=== PATIENT | female | born 1960 | race Caucasian/White ===

== ENCOUNTER → 2017-06-24 | Outpatient (CLI) | payer BC ==
[~2017-06-24] MED LIST: IBU-8800 MG PO; KETOROLAC0.03 ML/DR OP; LORTAB 5/500 501 TAB PO; LOTREL1 CA1 PO; NAPROSYN500 M1 PO; NORCO 325 MG-51 TAB PO; OFLOXACIN 10 ML10 ML OP; PREVACID 30MG C30 M1 PO
[2017-06-24 16:23] LABS: HEMOGLOBIN 13.7 g/dL (12.2-16.2)
== END ==
LOC: LAB 16:06
PROVIDERS: Surgery
DX: R19.5 Other fecal abnormalities (principal); Z01.812 Encounter for preprocedural laboratory examination

== ENCOUNTER 2017-07-02 10:46 | Day surgery (SDC) | payer BC ==
--- NOTE | 2017-07-02 12:27 | Operative Note ---
Surgeon/Diagnoses Surgeon/Operations Support Representative(s) Date of procedure: 07/02/17 Surgeon: MD Gisela Ang Diagnoses Pre-op diagnosis: Hemoccult positive stool Post-op diagnosis Same as preoperative diagnoses, with the addition of the following: Colon polyp Tortuous colon Procedure Procedure Procedure: Colonoscopy with polypectomy by means other than snare (biopsy) Indications: DARLENE ARELLANO is a 56 year-old Female with a history of Hemoccult positive stool. No melena. No bright red blood per rectum. No unexplained weight loss. No epigastric pain or reflux. Findings: Bowel preparation moderate to poor Very tortuous colon 8 mm polyp at 30 cm Procedure Description: After informed consent was obtained, the patient was taken to the endoscopy suite. IV sedation ensued after she was transferred to the LEFT lateral decubitus position. Digital rectal exam revealed no significant abnormality. The colonoscope was placed in position. The entire colon was evaluated. Bowel preparation was moderate to poor with large volume irrigation and suctioning used to somewhat improved visualization. The patient also had a very tortuous colon making visualization in certain areas of the colon very difficult. An 8 mm polyp at 30 cm was excised with cold biopsy forceps. No additional lesions were seen. The colonoscope was carefully removed and the patient was transferred to recovery. EBL (ml): 1 Anesthesia: IV sedation with 11 mg of Versed and 200 g of fentanyl Complications: No immediate Specimens: 8mm polyp at 30 cm Disposition Disposition: Stable to recovery from where she will be discharged home. She will follow-up in one week. Barium enema in the near future is warranted secondary to significant tortuosity and limited bowel preparation. Repeat colonoscopy will be pending pathology and barium enema, but will likely be within 3 years. at [id number]
[2017-07-02 13:52] VITALS: BP 124/71
== END 2017-07-02 13:09 | disposition home or self-care (01) ==
LOC: SDC 10:46
PROVIDERS: Surgery
PROC: 0DBE8ZX Excision of Large Intestine, Via Natural or Artificial Opening Endoscopic, Diagnostic (ICD-10-PCS; principal; 2017-07-02 11:30)
DX: Z12.11 Encounter for screening for malignant neoplasm of colon (principal); R19.5 Other fecal abnormalities; K63.5 Polyp of colon

== ENCOUNTER → 2017-07-17 | Outpatient (CLI) | payer BC ==
[2017-07-17 16:58] LABS: HEMOGLOBIN 13.1 g/dL (12.2-16.2)
== END ==
LOC: LAB 16:18
PROVIDERS: Surgery
DX: R19.5 Other fecal abnormalities (principal); Z01.812 Encounter for preprocedural laboratory examination

== ENCOUNTER 2017-07-22 06:54 | Day surgery (SDC) | payer BC ==
--- NOTE | 2017-07-22 07:58 | Operative Note ---
Surgeon/Diagnoses Surgeon/Financial Market Dealer(s) Date of procedure: 07/22/17 Surgeon: MD Gisela Ang Diagnoses Pre-op diagnosis: Occult blood in stool Gastroesophageal reflux Post-op diagnosis Same as preoperative diagnoses, with the addition of the following: Gastritis Gastric polyps Procedure Procedure Procedure: Esophagogastroduodenoscopy with biopsies Indications: DARLENE ARELLANO is a 57 year-old Female with a history of Hemoccult positive stool and gastroesophageal reflux. Findings: Gastroesophageal junction at 41 cm Mild gastritis with patchy areas of moderate inflammation Multiple polyps (likely inflammatory/fundic gland) throughout mid gastric body Procedure Description: After informed consent was obtained, the patient was taken to the endoscopy suite. IV sedation ensued after she was transferred to the LEFT lateral decubitus position. The gastroscope was advanced. The gastroesophageal junction was at 41 cm. The stomach was entered. Multiple polyps were noted throughout the mid gastric body. These polyps appeared to be inflammatory/fundic gland polyps. Multiple biopsies were obtained. No active bleeding was seen. Baseline mild gastritis with focal areas of patchy moderate inflammatory response were noted. Antral biopsies were obtained. Retroflexion revealed no significant abnormality and no definitive/large herniation; however, visualization of the hiatus was somewhat limited secondary to lack of relaxation. The pylorus was intubated. The duodenal mucosa appeared relatively normal. The gastroscope was carefully removed and the patient was transferred to recovery. EBL (ml): 1 Anesthesia: IV sedation with 7 mg of Versed and 150 g of fentanyl Complications: No immediate Specimens: Antral biopsies Multiple biopsies of mid gastric body polyps Disposition Disposition: Stable to recovery from where she will be discharged home. She will follow-up in one week. at [id number]
[2017-07-22 08:47] VITALS: BP 123/62
== END 2017-07-22 08:25 | disposition home or self-care (01) ==
LOC: SDC 06:54
PROVIDERS: Surgery
PROC: 0DB78ZX Excision of Stomach, Pylorus, Via Natural or Artificial Opening Endoscopic, Diagnostic (ICD-10-PCS; 2017-07-22)
PROC: 0DB68ZX Excision of Stomach, Via Natural or Artificial Opening Endoscopic, Diagnostic (ICD-10-PCS; principal; 2017-07-22 07:30)
DX: R19.5 Other fecal abnormalities (principal); K21.9 Gastro-esophageal reflux disease without esophagitis; K29.70 Gastritis, unspecified, without bleeding; K31.7 Polyp of stomach and duodenum; Z87.19 Personal history of other diseases of the digestive system; Q43.8 Other specified congenital malformations of intestine; Z79.899 Other long term (current) drug therapy; I10 Essential (primary) hypertension; Z80.9 Family history of malignant neoplasm, unspecified; Z82.62 Family history of osteoporosis; Z82.49 Family history of ischemic heart disease and other diseases of the circulatory system; Z83.3 Family history of diabetes mellitus; Z88.0 Allergy status to penicillin